=== PATIENT | male | born 1975 | race Caucasian/White ===

== ENCOUNTER 2016-08-26 12:24 | Emergency (ER) | payer OTHER ==
[2016-08-26 13:31] VITALS: BP 99/56
--- NOTE | 2016-08-26 13:38 | UC ---
HPI Febrile Illness - HPI Summary HPI Summary: 41 YEAR OLD MALE PRESENTS WITH COMPLAINS OF SEVERE HEADACHE, NECK PAIN, AND FEVER. I WILL SEND HIM TO THE ER. - History of Current Complaint Initial Severity: Moderate Current Severity: Moderate - Allergy/Home Medications Allergies/Adverse Reactions: Allergies Allergy/AdvReac Type Severity Reaction Status Date / Time No Known Allergies Allergy Verified 08/17/15 15:37 PMH/Surg Hx/FS Hx/Imm Hx Endocrine/Hematology History: Denies: Hx Diabetes, Hx Thyroid Disease Cardiovascular History: Denies: Hx Congestive Heart Failure, Hx Deep Vein Thrombosis, Hx Hypertension , Hx Myocardial Infarction, Hx Pacemaker/ICD Respiratory History: Reports: Hx Asthma - He states that he has occasional--1-2 times/year. Denies: Hx Chronic Obstructive Pulmonary Disease (COPD), Hx Lung Cancer, Hx Pneumonia, Hx Pulmonary Embolism GI History: Denies: Hx Gall Bladder Disease, Hx Gastrointestinal Bleed, Hx Ulcer, Hx Urosepsis History: Denies: Hx Kidney Stones, Hx Renal Disease Neurological History: Denies: Hx Dementia, Hx Migraine, Hx Seizures, Hx Transient Ischemic Attacks (TIA) Psychiatric History: Reports: Hx Depression, Hx Bipolar Disorder Denies: Hx Anxiety, Hx Schizophrenia Infectious Disease History: No Infectious Disease History: Denies: Traveled Outside the [place] in Last 30 Days - Family History Known Family History: Negative: Cardiac Disease, Hypertension, Diabetes - Social History Alcohol Use: None Substance Use Type: Reports: None Smoking Status (MU): Never Smoked Tobacco Review of Systems Constitutional: Fever, Chills Skin: Negative Eyes: Negative ENT: Negative Respiratory: Negative Cardiovascular: Negative Gastrointestinal: Negative Genitourinary: Negative Motor: Negative Neurovascular: Negative Musculoskeletal: Negative, Myalgia Neurological: Headache, Weakness Psychological: Negative All Other Systems Reviewed And Are Negative: Yes Physical Exam Triage Information Reviewed: Yes Appearance: Ill-Appearing Vital Signs: Initial Vital Signs Temp 38.8 C 08/26/16 13:18 Pulse 89 08/26/16 13:18 Resp 14 08/26/16 13:18 BP 99/56 08/26/16 13:18 Pulse Ox 95 08/26/16 13:18 Eye Exam: Normal ENT Exam: Normal Dental Exam: Normal Neck exam: Normal Neck: Positive: 1 Respiratory Exam: Normal Cardiovascular Exam: Normal Abdominal Exam: Normal Musculoskeletal Exam: Normal Neurological: Positive: Fatigued, Lethargic Psychological Exam: Normal Skin Exam: Normal Course/Dx - Diagnoses Clinic Provider Diagnoses: FEVER. NECK PAIN. HEADACHE Discharge - Discharge Plan Condition: Guarded Disposition: AGAINST MEDICAL ADVICE Referrals: Vicente Hugo [Physician Proof Machine Operator Supervisor] - As Soon As Possible
== END 2016-08-26 13:40 | disposition left against medical advice (07) ==
LOC: UCCORT 12:24
DX: R50.9 Fever, unspecified (principal); R51 Headache; M54.2 Cervicalgia
CPT/HCPCS: 99212; G0463

== ENCOUNTER 2017-03-28 18:09 | Emergency (ER) | payer OTHER | END 2017-03-28 20:38 | disposition left against medical advice (07) | LOC: UCCORT 18:09 | DX: J11.1 Influenza due to unidentified influenza virus with other respiratory manifestations (principal); Z53.21 Procedure and treatment not carried out due to patient leaving prior to being seen by health care provider ==

== ENCOUNTER 2017-03-31 09:57 | Emergency (ER) | payer OTHER ==
[2017-03-31 12:27] VITALS: BP 123/68
--- NOTE | 2017-03-31 12:58 | UC ---
Respiratory Complaint HPI - HPI Summary HPI Summary: Pt c/o cough X 1 week, generalized malaise, fever that has resolved a has history of pneumonia - History of Current Complaint Chief Complaint: UCRespiratory Stated Complaint: CONGESTION RASPY COUGH Time Seen by Provider: 03/31/17 12:28 Hx Obtained From: Patient Timing: Constant Severity Initially: Mild Severity Currently: Moderate Pain Intensity: 7 Character: Cough: Productive Aggravating Factors: Deep Breaths, Recumbent Position Alleviating Factors: Nothing Associated Signs And Symptoms: Positive: Fever, Chills, URI, Nasal Congestion - Risk Factors Pulmonary Embolism Risk Factors: Negative Cardiac Risk Factors: Negative Pseudomonas Risk Factors: Negative Tuberculosis Risk Factors: Negative - Allergies/Home Medications Allergies/Adverse Reactions: Allergies Allergy/AdvReac Type Severity Reaction Status Date / Time No Known Allergies Allergy Verified 03/31/17 12:18 Home Medications: Home Medications [place] Carbonate TAB* 375 mg PO BID 03/31/17 [History Confirmed 03/31/17] guaiFENesin ER TAB [Mucinex*] 600 mg PO ONCE PRN 03/31/17 [History Confirmed 07/11] PMH/Surg Hx/FS Hx/Imm Hx Previously Healthy: Yes Other History Of: Negative For: HIV, Hepatitis B, Hepatitis C - Surgical History Surgical History: None - Family History Known Family History: Negative: Cardiac Disease, Hypertension, Diabetes - Social History Occupation: Employed Full-time Lives: With Family Alcohol Use: None Substance Use Type: None Smoking Status (MU): Never Smoked Tobacco Have You Smoked in the Last Year: No Review of Systems Constitutional: Fever, Chills, Fatigue Skin: Negative Eyes: Negative ENT: Sinus Congestion Respiratory: Cough Cardiovascular: Negative Gastrointestinal: Negative Genitourinary: Negative Motor: Negative Neurovascular: Negative Musculoskeletal: Negative Neurological: Negative Psychological: Negative Is Patient Immunocompromised?: No All Other Systems Reviewed And Are Negative: Yes Physical Exam Triage Information Reviewed: Yes Appearance: Ill-Appearing Vital Signs: Initial Vital Signs Temp 98.8 F 03/31/17 12:19 Pulse 74 03/31/17 12:19 Resp 18 03/31/17 12:19 BP 123/68 03/31/17 12:19 Pulse Ox 99 03/31/17 12:19 Vital Signs Reviewed: Yes Eye Exam: Normal ENT Exam: Other ENT: Positive: Nasal congestion Dental Exam: Normal Neck exam: Normal Respiratory Exam: Other Respiratory: Positive: Decreased breath sounds - bases bilateral Cardiovascular Exam: Normal Musculoskeletal Exam: Normal Neurological Exam: Normal Psychological Exam: Normal Skin Exam: Normal UC Diagnostic Evaluation - Laboratory O2 Sat by Pulse Oximetry: 99 Diagnostic Studies Comment: positive flu A - Radiology Radiology Interpretation Completed By: Radiologist - IMPRESSION: Respiratory Course/Dx - Course Course Of Treatment: xray: IMPRESSION: NO ACTIVE CARDIOPULMONARY DISEASE. - Differential Dx/Diagnosis Differential Diagnosis/HQI/PQRI: Bronchitis, Influenza Provider Diagnoses: Bronchitis. Influenza A Discharge - Discharge Plan Condition: Stable Disposition: HOME Prescriptions: DOXYcycline CAP(*) [DOXYcycline 100MG CAP(*)] 100 mg PO Q12H #20 cap methylPREDNISolone TAB* [Medrol TAB*] 4 - 8 mg PO .SEE SARA #1 sara Oseltamivir CAP* [Tamiflu CAP*] 75 mg PO Q12H #10 cap Patient Education Materials: Acute Bronchitis (ED), Influenza (DC) Referrals: COREY Baumann [Primary Care Provider] - If Needed
--- NOTE | 2017-03-31 13:03 | RAD ---
HISTORY: Cough, shortness of breath, fever COMPARISONS: None VIEWS: 4: Frontal dual-energy and lateral views of the chest. FINDINGS: CARDIOMEDIASTINAL SILHOUETTE: The cardiomediastinal silhouette is normal. STU: The stu are normal. PLEURA: The costophrenic angles are sharp. No pleural abnormalities are noted. LUNG PARENCHYMA: The lungs are clear. ABDOMEN: The upper abdomen is clear. There is no subphrenic gas. BONES AND SOFT TISSUES: No bone or soft tissue abnormalities are noted. OTHER: None. IMPRESSION: NO ACTIVE CARDIOPULMONARY DISEASE.
== END 2017-03-31 13:14 | disposition home or self-care (01) ==
LOC: UCCORT 09:57
DX: J40 Bronchitis, not specified as acute or chronic (principal); J09.X2 Influenza due to identified novel influenza A virus with other respiratory manifestations
CPT/HCPCS: 71046; 87502; 99212; G0463

== ENCOUNTER 2017-05-12 08:43 | Emergency (ER) | payer OTHER ==
[2017-05-12 09:02] VITALS: BP 114/68
--- NOTE | 2017-05-12 09:11 | UC ---
Lower Extremity/Ankle HPI - HPI Summary HPI Summary: 42 y/o male presents to the urgent care c/o RT foot pain s/p stepping wrong at the curb and injuring his foot last Friday night 05/09/2017. Pt states pain is 7/ 10 w/ walking. Pt has taking Ibuprofen PO 600mg PO to alleviate symptoms. He has Hx of Fracture of same foot about 7 years ago. Pt denies numbness or tinglin sensation over the foot or toes, SOB, ankle pain, calf pain, chest pain , abdominal pain, N/V/D. - History of Current Complaint Chief Complaint: UCLowerExtremity Stated Complaint: RIGHT FOOT Time Seen by Provider: 05/12/17 09:09 Hx Obtained From: Patient Onset/Duration: Sudden Onset, Lasting Days - 3 days, Still Present, Worse Since - last night Severity Initially: Moderate Severity Currently: Moderate Pain Intensity: 7 Pain Scale Used: 0-10 Numeric Aggravating Factor(s): Standing, Ambulation Alleviating Factor(s): Rest, Ice, OTC Meds Able to Bear Weight: Yes - Risk Factors Gout Risk Factors: Negative DVT Risk Factors: Negative Septic Arthritis Risk Factor: Negative - Allergies/Home Medications Allergies/Adverse Reactions: Allergies Allergy/AdvReac Type Severity Reaction Status Date / Time No Known Allergies Allergy Verified 05/12/17 08:56 PMH/Surg Hx/FS Hx/Imm Hx Previously Healthy: Yes Respiratory History: Asthma Psychological History: Bipolar Disorder Other History Of: Negative For: HIV, Hepatitis B, Hepatitis C - Surgical History Surgical History: None - Family History Known Family History: Positive: Hypertension, Diabetes Negative: Cardiac Disease Family History: Dyslipidemia - Social History Occupation: Employed Full-time Lives: With Family Alcohol Use: None Substance Use Type: None Smoking Status (MU): Never Smoked Tobacco Have You Smoked in the Last Year: No Review of Systems Constitutional: Negative Skin: Negative Eyes: Negative ENT: Negative Respiratory: Negative Cardiovascular: Negative Gastrointestinal: Negative Genitourinary: Negative Motor: Negative Neurovascular: Negative Musculoskeletal: Decreased ROM - RT foot s/p injury, Other: - RT acute foot pain s/p injury Neurological: Negative Psychological: Negative Is Patient Immunocompromised?: No All Other Systems Reviewed And Are Negative: Yes Physical Exam - Summary Physical Exam Summary: Vital Signs Reviewed: Yes General : well developed, well nourished male w/o any apparent distress Eyes: Positive: Conjunctiva Clear - PERRLA, EOMI ENT: Positive: Normal ENT inspection, Hearing grossly normal, Pharynx normal, TMs normal Neck: Positive: Supple, Nontender, No Lymphadenopathy Respiratory: Positive: Chest non-tender, Lungs clear, Normal breath sounds, No respiratory distress Cardiovascular: Positive: RRR, No Murmur, Pulses Normal Abdomen Description: Positive: Nontender, No Organomegaly, Soft. Negative: CVA Tenderness (R), CVA Tenderness (L) Bowel Sounds: Positive: Present Musculoskeletal: Positive: Strength Intact, ROM Intact, No Edema, RT Foot/Toes : Pt is able to bear weight but ambulate with mild limping.No surface trauma, ecchymosis, erythema, lesions, ulcers or break in skin integrity. The R foot is without obvious asymmetry or deformity when compared to the L foot. No bony step -off, No tenderness to palpation over toes, point tenderness over the dorsal side of mid foot , no tenderness of hindfoot, Decrease plantar/dorsiflexion, inversion/eversion due to pain. Distal motor and neurovascular status are intact. Neurological Exam: Normal Psychological Exam: Normal Skin Exam: Normal Triage Information Reviewed: Yes Vital Signs: Initial Vital Signs Temp 97.8 F 05/12/17 08:53 Pulse 70 05/12/17 08:53 Resp 14 05/12/17 08:53 BP 114/68 05/12/17 08:53 Pulse Ox 99 05/12/17 08:53 Lower Extremity Course/Dx - Course Course Of Treatment: 42 y/o male presents to the urgent care c/o RT foot pain s/ p stepping wrong at the curb and injuring his foot last Friday night 05/09/2017. Pt states pain is 7/10 w/ walking. Pt has taking Ibuprofen PO 600mg PO to alleviate symptoms. He has Hx of Fracture of same foot about 7 years ago. Pt denies numbness or tinglin sensation over the foot or toes, SOB, ankle pain, calf pain, chest pain, abdominal pain, N/V/D. Hx obtained. RT foot X-ray ordered, Impression:There was no fracture, dislocation, soft tissue swelling or FB noted. Pt's foot immobilized with edd-bandage and given a post-op shoe to avoid flexion. Advised RICE, and Rx Ibuprofen PO for pain, If not improvement of symptoms to f/u with Orthopedic DR Garcia referral for further evaluation and treatment. Pt understood and agreed with D/C instructions. Pt left the clinic ambulating, A&OX3. - Differential Dx/Diagnosis Differential Diagnosis/HQI/PQRI: Arthritis, Fracture (Closed), Sprain, Strain, Tendonitis Provider Diagnoses: 1- Acute RT foot pain s/p injury Discharge - Discharge Plan Condition: Stable Disposition: HOME Prescriptions: Ibuprofen TAB* [Motrin TAB* 800 MG] 800 mg PO Q6H PRN #30 tab PRN Reason: Pain Patient Education Materials: Foot Sprain (ED) Referrals: Radha Garcia MD [Medical Doctor] - 1 Week COREY Baumann [Primary Care Provider] - 3 Days Additional Instructions: 1-Please take medications as directed to alleviate pain and swelling. 2-Please apply ice, keep your foot immobilized with the Edd bandage and post - op shoe. Avoid strenuous exercise or standing for long periods of time 3- Please f/u with your PCP or Othopedic in 1 week if not improvement of symptoms for further evaluation and treatment.
--- NOTE | 2017-05-12 09:50 | RAD ---
INDICATION: Dorsal foot pain after "stepping off of a curb wrong" COMPARISON: Foot radiograph dated July 03, 2005 TECHNIQUE: 3 views of the right foot were obtained. FINDINGS: The adequately corticated bones are properly aligned. Joint spaces appear maintained. No fracture, dislocation or focal bony abnormality is seen. IMPRESSION: Normal radiograph of the right foot. If the patient's symptoms persist, follow-up imaging is recommended.
== END 2017-05-12 10:15 | disposition home or self-care (01) ==
LOC: UCCORT 08:43
DX: M79.671 Pain in right foot (principal); X50.0XXA Overexertion from strenuous movement or load, initial encounter; Y93.01 Activity, walking, marching and hiking; Y92.9 Unspecified place or not applicable
CPT/HCPCS: 99213; G0463